=== PATIENT | female | born 1980 ===

== ENCOUNTER → 2023-05-22 11:13 | Outpatient (BNVA) | payer OTHER, SELFPAY | PROVIDERS: PCP Internal Medicine; Visit Provider Physician Assistant ==

== ENCOUNTER → 2023-05-22 11:13 | Outpatient (BNVA) | payer OTHER, SELFPAY | PROVIDERS: PCP Internal Medicine; Visit Provider Physician Assistant ==

== ENCOUNTER 2023-06-05 10:36 | Outpatient (AMB) | payer OTHER, SELFPAY ==
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
== END 2023-06-05 11:19 | disposition home or self-care (01) ==
PROVIDERS: PCP Internal Medicine; Referring Provider Physician Assistant; Visit Provider Physician Assistant
DX: M54.16 Radiculopathy, lumbar region (principal)
CPT/HCPCS: 99204

== ENCOUNTER → 2023-06-05 10:36 | Outpatient (BNVA) | payer OTHER, SELFPAY | PROVIDERS: PCP Internal Medicine; Visit Provider Physician Assistant | DX: M54.16 Radiculopathy, lumbar region (principal) | CPT/HCPCS: 99202 ==

== ENCOUNTER → 2023-11-28 11:23 | Outpatient (BNV) | payer OTHER, SELFPAY | PROVIDERS: PCP Internal Medicine; Visit Provider Internal Medicine Cardiovascular Disease | DX: Z01.810 Encounter for preprocedural cardiovascular examination (principal) | CPT/HCPCS: 93010 ==

== ENCOUNTER 2023-12-12 07:15 | Day surgery (SDC) | payer OTHER, SELFPAY ==
--- NOTE | 2023-11-28 | ECG_ITS ---
Test Reason : preop Blood Pressure : / mmHG Vent. Rate : 081 BPM Atrial Rate : 081 BPM P-R Int : 162 ms QRS Dur : 080 ms QT Int : 364 ms P-R-T Axes : 064 048 006 degrees QTc Int : 422 ms Normal sinus rhythm Low voltage QRS Borderline ECG No previous ECGs available Referred By: Sonam Valerio Electronically Signed By:NGA CARDONA MD
[2023-11-28 10:43] VITALS: BMI 33.2
[2023-11-28 10:54] VITALS: BP 140/96; PULSE 95; RESP 16; O2SAT 99
[2023-11-29 13:53] LABS: Hematocrit 42.8 % (37.0-47.0); Hemoglobin 15.1 g/dl (12.0-16.0); Mean Corpuscular HGB Conc 35.3 g/dl (31.0-35.0); Mean Corpuscular Hemoglobin 32.1 pg (27.0-33.0); Mean Corpuscular Volume 91.1 fL (80.0-98.0); Mean Platelet Volume 10.7 fL (9.4-12.3); Platelet Count 269 X10*3/uL (160-400); Red Cell Distribution Width 12.5 % (11.0-16.0); White Blood Count 6.7 X10*3/uL (4.8-10.8)
[2023-11-29 14:00] LABS: Estimated Average Glucose 203 mg/dL; Hemoglobin A1c % 8.7 % (<6.0)
[2023-11-29 15:09] LABS: Anion Gap 13 (12-20); Blood Urea Nitrogen 14 mg/dL (9-16); Calcium 9.2 mg/dL (8.4-10.2); Carbon Dioxide 19 mmol/L (22-29); Chloride 109 mmol/L (96-108); Creatinine Clr Calc Pharmacy 101.9; Estimated Glomerular Filt Rate > 60; Glucose Random 248 mg/dL (60-115); Potassium 4.8 mmol/L (3.3-5.1); Sodium 136 mmol/L (135-145)
[2023-12-12] VITALS (8 sets, daily range): BP systolic 118–161; BP diastolic 70–92; PULSE 77–97; RESP 18; TEMP 36.2–36.4; O2SAT 95–99; BMI 32.6
--- NOTE | ~2023-12-12 | FL_ITS ---
EXAMINATION: XR FLUOROSCOPY WITH IMAGES CLINICAL INFORMATION: L5-S1 microlumbar discectomy. COMPARISON: None available. TECHNIQUE: Fluoroscopy Supervised By: Dr. Escobar. Fluoroscopy Time: 0.0. Cumulative Dose: 2.53 mGy. DAP: 0.0439 Gycm2. Images: 1. FINDINGS: Intraoperative fluoroscopy and spot films were performed during a procedure in the OR. A probe is present at the L5-S1 disc space. Please correlate with Dr. Escobar's report for complete details. FL/FL guidance in OR IMPRESSION: Intraoperative fluoroscopy and spot films were obtained. Please see Dr. Escobar's report for complete details.
--- NOTE | 2023-12-12 07:09 | PC.NURSE ---
0710 call placed to pt due to has not arrived as scheduled at 0700, states 4 minutes away had an emergency this morning .
--- NOTE | 2023-12-12 07:23 | MHC.SHP ---
Pre-Procedural Eval Section A - 24 Hr Update-Section A only Date of Service: 12/12/23 The patient is an INPATIENT: No Changes since office visit: No Cold of Flu in the past 2 weeks, No New Medical Problems, No Changes in Medication and No Patient answered all questions The patient has been examined within 24 hours of the surgical procedure. The History & Physical has been completed within 30 days and I have reviewed it.: No Section B - Complete if H&P > 30 days Chief Complaint: Radiculopathy, lumbar region Allergies: Allergies Allergy/AdvReac Type Severity Reaction Status Date / Time latex Allergy Severe Rash, Verified 11/28/23 10:41 throat itching Seasonal Allergies Allergy Intermediate Runny Nose Verified 06/06/23 08:38 Review of Systems Sugical H&P ROS: Negative: Constitution, Cardiovascular, Respiratory, Neurological, Psychiatric, Hem-Onc, Allergic/Immunologic, Gastrointestinal, Genitourinary, Musculoskeletal, Integumentary, Endocrine and Eyes/Ears/Nose/Throat Exam Surgical H&P Exam: Normal: HEENT, Normal: Heart, Normal: Lungs, Normal: Extremities, Normal: Abdomen, Normal: Skin and Normal: Neurological (awake, alert,oriented x 3 ) Plan Diagnosis/Plan: Unchanged left L5-S1 microdiskectomy Time Spent With Patient Time: Total time managing care of this patient today _6___ minutes.
--- NOTE | 2023-12-12 07:55 | P.CONAN_ITS ---
Documented by User: Sonam Valerio NP 12/10/23 15:27 HPI - Anesthesia Eval Consult details Narrative: 43yo F for Left L5-S1 MicroLumbar discectomy, 12/12/23 Chronic post-covid cough. Occasional small clear phlegm. No other illness No CP/SOB. Occasional brief palps post-COVID IDDM: FBS ~ 110 PMFSH Active Problems Active Problems: All Active Problems Lumbar radiculopathy (Acute) Past Medical History Medical History (Updated 11/28/23 @ 11:00 by Shani Reed RN) Chronic cough Personal history of COVID-19 (~02/2023) Endometriosis Seasonal allergies Lung nodule Post-COVID chronic cough COVID-19 Diabetes Elevated cholesterol HTN (hypertension) Family History Family history of problems with anesthesia: No Surgical History Surgical History (Updated 11/28/23 @ 10:43 by Shani Reed RN) H/O tooth extraction Hx of section (2010) Hx of laparoscopy (~2009) History of Problems with Anesthesia: No Social History Social History Household Members Other:: 12 year old son Are you a primary physician locums urgent care to a significant other at home: Yes (son, sister to help post-op) Do you presently have visiting nurse or other home services: No Patient Tobacco Use Status: Current everyday Tobacco user Tobacco use type: Cigarette Cigarettes Per Day: 5 Years Smoked: 20 Smoked in Last 30 Days: Yes Second Hand Smoke Exposure: No Use of substances other than those prescribed or required for medical reasons: Yes Substance Use Frequency: Daily Have you been hit, kicked, punched, or otherwise hurt by someone within the past year? If so, by whom?: No Are you DNR?: No Advance Directives: No Advance Directives Information Provided: Yes Advance Directives on File: No Recently lost weight without trying: No Nutrition Risks: No Nutritional Risk Patient : No FDLMP: 11/05/2023 : No Poor oral hygiene: No Meds Allergies Allergy/AdvReac Type Severity Reaction Status Date / Time latex Allergy Severe Rash, Verified 12/12/23 07:27 throat itching Seasonal Allergies Allergy Intermediate Runny Nose Verified 12/12/23 07:27 Home Medications ?Medication ?Instructions ?Recorded ?Confirmed ?Last Taken ?Type amlodipine 10 mg tablet 10 mg PO DAILY 07/10/23 11/28/23 12/12/23 History atorvastatin 40 mg tablet 40 mg PO DAILY 07/10/23 11/28/23 Unknown History cetirizine 10 mg tablet 10 mg PO DAILY 07/10/23 11/28/23 Unknown History insulin glargine 100 unit/mL (3 13 unit subcut BID 07/10/23 11/28/23 12/11/23 History mL) subcutaneous pen (Lantus Solostar U-100 Insulin) insulin lispro 100 unit/mL 7 - 12 unit subcut TID 07/10/23 11/28/23 Unknown History subcutaneous pen losartan 50 mg tablet 50 mg PO DAILY 07/10/23 11/28/23 Unknown History acetaminophen 500 mg tablet 1,000 mg PO Q6H PRN Pain 11/28/23 11/28/23 Unknown History albuterol sulfate 90 mcg/actuation 2 puff inhalation Q4-6H PRN 11/28/23 11/28/23 Unknown History aerosol inhaler (Ventolin HFA) Shortness Of Breath Or Wheezing calcium 26-vit D3-magnesium 15 11/28/23 Unknown History ibuprofen 600 mg tablet 600 mg PO QID PRN Pain 11/28/23 11/28/23 Unknown History Exam Height,Weight and Vital Signs: Height 5 ft 7 in Weight 96.162 kg Last Vital Signs Pulse 95 11/28/23 10:54 Resp 16 11/28/23 10:54 BP 140/96 H 11/28/23 10:54 Pulse Ox 99 11/28/23 10:54 O2 Del Method Room Air 11/28/23 10:54 Pertinent Lab Results Pertinent Lab Results: Lab Results 11/29/23 Range/Units 13:19 WBC 6.7 (4.8-10.8) X10*3/uL RBC 4.70 (4.20-5.50) X10*6/uL Hgb 15.1 (12.0-16.0) g/dl Hct 42.8 (37.0-47.0) % MCV 91.1 (80.0-98.0) fL MCH 32.1 (27.0-33.0) pg MCHC 35.3 H (31.0-35.0) g/dl RDW 12.5 (11.0-16.0) % Plt Count 269 (160-400) X10*3/uL MPV 10.7 (9.4-12.3) fL Absolute Nucleated RBC 0.000 (0.0-0.012) X10*3/uL Nucleated RBC % (auto) 0.0 (0.0-0.2) /100WBC Sodium 136 (135-145) mmol/L Potassium 4.8 (3.3-5.1) mmol/L Chloride 109 H (96-108) mmol/L Carbon Dioxide 19 L (22-29) mmol/L Anion Gap 13 (12-20) BUN 14 (9-16) mg/dL Creatinine 0.83 (0.5-1.4) mg/dL Estim Creat Clear Calc 101.9 Estimated GFR > 60 Random Glucose 248 H (60-115) mg/dL Estimat Average Glucose 203 mg/dL Hemoglobin A1c % 8.7 H (<6.0) % Calcium 9.2 (8.4-10.2) mg/dL Narrative Narrative: EKG 11/2023 Vent. Rate : 081 BPM Atrial Rate : 081 BPM P-R Int : 162 ms QRS Dur : 080 ms QT Int : 364 ms P-R-T Axes : 064 048 006 degrees QTc Int : 422 ms Normal sinus rhythm Low voltage QRS Borderline ECG No previous ECGs available Airway Loose/Missing/Broken Teeth: Yes (pulled molars) Heart: RRR Lungs: CTAB Assessment and Plan Assessment Anesthesia Assessment: Anesthesia Plan Discussed and PAT Visit Final Anesthetic Review Family History of Problems with Anesthesia: No History of Problems with Anesthesia: No Documented by User: Laney Shaffer DO 12/12/23 07:59 [facility] Past Medical History Medical History (Updated 11/28/23 @ 11:00 by Shani Reed RN) Chronic cough Personal history of COVID-19 (~02/2023) Endometriosis Seasonal allergies Lung nodule Post-COVID chronic cough COVID-19 Diabetes Elevated cholesterol HTN (hypertension) Family History Family history of problems with anesthesia: No Surgical History Surgical History (Updated 11/28/23 @ 10:43 by Shani Reed RN) H/O tooth extraction Hx of section (2010) Hx of laparoscopy (~2009) History of Problems with Anesthesia: No Social History Social History Household Members Other:: 12 year old son Are you a primary physician locums urgent care to a significant other at home: Yes (son, sister to help post-op) Do you presently have visiting nurse or other home services: No Patient Tobacco Use Status: Current everyday Tobacco user Tobacco use type: Cigarette Cigarettes Per Day: 5 Years Smoked: 20 Smoked in Last 30 Days: Yes Second Hand Smoke Exposure: No Use of substances other than those prescribed or required for medical reasons: Yes Substance Use Frequency: Daily Have you been hit, kicked, punched, or otherwise hurt by someone within the past year? If so, by whom?: No Are you DNR?: No Advance Directives: No Advance Directives Information Provided: Yes Advance Directives on File: No Recently lost weight without trying: No Nutrition Risks: No Nutritional Risk Patient : No FDLMP: 11/05/2023 : No Poor oral hygiene: No Meds Allergies Allergy/AdvReac Type Severity Reaction Status Date / Time latex Allergy Severe Rash, Verified 12/12/23 07:27 throat itching Seasonal Allergies Allergy Intermediate Runny Nose Verified 12/12/23 07:27 Home Medications ?Medication ?Instructions ?Recorded ?Confirmed ?Last Taken ?Type amlodipine 10 mg tablet 10 mg PO DAILY 07/10/23 11/28/23 12/12/23 History atorvastatin 40 mg tablet 40 mg PO DAILY 07/10/23 11/28/23 Unknown History cetirizine 10 mg tablet 10 mg PO DAILY 07/10/23 11/28/23 Unknown History insulin glargine 100 unit/mL (3 13 unit subcut BID 07/10/23 11/28/23 12/11/23 History mL) subcutaneous pen (Lantus Solostar U-100 Insulin) insulin lispro 100 unit/mL 7 - 12 unit subcut TID 07/10/23 11/28/23 Unknown History subcutaneous pen losartan 50 mg tablet 50 mg PO DAILY 07/10/23 11/28/23 Unknown History acetaminophen 500 mg tablet 1,000 mg PO Q6H PRN Pain 11/28/23 11/28/23 Unknown History albuterol sulfate 90 mcg/actuation 2 puff inhalation Q4-6H PRN 11/28/23 11/28/23 Unknown History aerosol inhaler (Ventolin HFA) Shortness Of Breath Or Wheezing calcium 26-vit D3-magnesium 15 11/28/23 Unknown History ibuprofen 600 mg tablet 600 mg PO QID PRN Pain 11/28/23 11/28/23 Unknown History Exam Exam Date and Time: December 12, 2023 0752 Height,Weight and Vital Signs: Height 5 ft 7 in Weight 96.162 kg Last Vital Signs Pulse 95 11/28/23 10:54 Resp 16 11/28/23 10:54 BP 140/96 H 11/28/23 10:54 Pulse Ox 99 11/28/23 10:54 O2 Del Method Room Air 11/28/23 10:54 Height 5 ft 7 in Weight 94.347 kg Vital Signs Pulse Rate 95 11/28/23 10:54 Respiratory Rate 16 11/28/23 10:54 Blood Pressure 140/96 H 11/28/23 10:54 Pulse Oximetry 99 11/28/23 10:54 Oxygen Delivery Method Room Air 11/28/23 10:54 Temperature 97.5 F 12/12/23 07:35 Pulse Rate 97 12/12/23 07:35 Respiratory Rate 18 12/12/23 07:35 Blood Pressure 161/91 H 12/12/23 07:35 Pulse Oximetry 99 12/12/23 07:35 Oxygen Delivery Method Room Air 12/12/23 07:35 Airway Mallampati Class: II TM Dist: >3cm Neck ROM: Full Loose/Missing/Broken Teeth: Yes (missing molars) Heart: S1S2 Assessment and Plan Assessment Anesthesia Assessment: Anesthesia Plan Discussed and Chart Reviewed Final Anesthetic Review Family History of Problems with Anesthesia: No History of Problems with Anesthesia: No NPO: Yes ASA Class: II Final Preanesthetic Review: No Changes in Pt Med Stat, Meds/Allgs Chart Reviewed, Consent Obtained/Reviewed and Anes Risks/Benef Reviewed Patient Risk: Low Procedure Risk: Intermediate Anesthetic Plan Anesthetic Plan: GA and Agree w/ Assess. and Plan Disposition: Standard PACU
[2023-12-12] MEDS: Lactated Ringers 1,000 ML 100 ML IVCONT (07:58)
[2023-12-12 07:59] LABS: Glucose, Whole Blood 254 mg/dL (60-115)
[2023-12-12] MEDS: methocarbamoL 750 MG TABLET PO (08:04)
[2023-12-12] MEDS: Gabapentin 300 MG CAPSULE PO (08:04)
[2023-12-12 08:16] LABS: UPreg QC Valid YES; Urine Pregnancy NEGATIVE (NEGATIVE)
--- NOTE | 2023-12-12 09:42 | W.PM.OPN ---
Operative Note Operative Note Date of Service: 12/12/23 Narrative: Preoperative diagnosis: Left S1 radiculopathy due to disc herniation Postoperative diagnosis: Same Procedure: Left L5-S1 microdiskectomy with microscope Surgeon: Errol Escobar MD, PhD Obstetric Assistant: Cholo Forrester This patient is suffering from a left lumbar radiculopathy due to a L5-S1 disc herniation compressing the left S1 nerve root.. The patient was offered a lumbar microdiskectomy to decompress the nerve root. The procedure complications were explained. The patient was consented. The patient was brought to the operating room and endotracheally intubated. The patient was turned in a prone position on the Fortunato frame. Prepping and draping was done followed by time-out. A mid lumbar incision was made followed by release of the paravertebral muscles on the left side to expose the L5-S1 interspace. An intraoperative x-rays obtained to confirm the correct level. The microscope was brought in. A L5 laminotomy was done followed by opening of the flavum ligament. The S1 nerve root was identified and retracted medially to expose the L5-S1 disc space. I could palpate a small disc bulge but not the herniation that we were expecting. An annulotomy was done and disc material was removed from medial for the S1 nerve root. The disc space was inspected and any residual disc fragments were removed. This resulted in an excellent decompression of the S1 nerve root. Hemostasis was done. The microscope was removed. Marcaine was injected intramuscularly.The incision was closed in two layers. Steri-Strips used to approximate seizure. An op-site were taken there was used to cover the incision. All sponge and needle counts were correct. Patient was extubated and transported in stable condition to recovery room. this procedure was done with the aid of a physician assistant store manager sales who performed the initial exposure until the microscope was brought in and performed the closure of the incision. Anesthesia: General Blood loss: 10 mL Complications: None Specimen: None Surgical time: Disposition: Discharge home
--- NOTE | 2023-12-12 09:54 | PM.DS ---
DS: Providers Provider Date of Service: 12/12/23 Date of discharge: 12/12/23 Primary care physician: Lety Quinones MD Admitting clinician: Errol Escobar DS: Diagnosis Discharge Diagnosis (1) Lumbar radiculopathy: Status: Acute DS: Summary Time Attestation Discharge Coordination Time (in mins): 6 Quality: Safe Use of Opioids Does Pt have an Active Cancer Diagnosis on the Problem List?: No Quality: Stroke Does the patient have a stroke diagnosis?: No Physical Exam Vital Signs: Vital Signs: Last Vital Signs Temp 97.5 F 12/12/23 07:35 Pulse 97 12/12/23 07:35 Resp 18 12/12/23 07:35 BP 161/91 H 12/12/23 07:35 Pulse Ox 99 12/12/23 07:35 O2 Del Method Room Air 12/12/23 07:35 BMI result Body Mass Index 32.6 DS: Data Data Completed and Pending Labs on day of discharge: Laboratory Results - last 24 hr 12/12/23 12/12/23 07:48 Unknown POC Glucose 254 H Urine Test NEGATIVE Discharge Plan Discharge Patient Disposition: Home, Self-Care Referrals: Lety Quinones MD [Primary Care Provider] - 1 Week Discharge Medications: New docusate sodium [Colace] 100 mg capsule 100 mg PO BID Qty: 20 0RF oxycodone 5 mg tablet 5 mg PO Q4H PRN (Reason: pain) Qty: 20 0RF Rx Instructions: Partial Fill upon patient request. Continued losartan 50 mg tablet 50 mg PO DAILY atorvastatin 40 mg tablet 40 mg PO DAILY cetirizine 10 mg tablet 10 mg PO DAILY amlodipine 10 mg tablet 10 mg PO DAILY insulin lispro 100 unit/mL insulin pen 7 - 12 unit SUBCUT TID insulin glargine [Lantus Solostar U-100 Insulin] 100 unit/mL (3 mL) insulin pen 13 unit subcut BID Rx Instructions: took 8 units insulin last pm acetaminophen 500 mg Tablet 1,000 mg PO Q6H PRN (Reason: Pain) ibuprofen 600 mg Tablet 600 mg PO QID PRN (Reason: Pain) calcium 26-vit D3-magnesium 15 albuterol sulfate [Ventolin HFA] 90 mcg/actuation Hfa Aerosol Inhaler 2 puff INHALATION Q4-6H PRN (Reason: Shortness Of Breath Or Wheezing) Discharge Orders: Discharge Order (Routine); Ordered 12/12/23 Ordered By: Cholo Forrester Diet: Advance to usual diet Activity on Discharge: As tolerated Activity Restrictions/Additional Instructions: After your spinal surgery we ask you to observe the following restrictions/guidelines: Activity: It is normal to feel some discomfort as you increase your activity, but that will improve with time. We ask you avoid heavy lifting or acitivities that cause pain. As a general rule, 8lbs is a safe limit for lifting right after surgery. Walk as much as you feel comfortable but not to exhaustion. You will feel extra tired the first few days after surgery. Stay well hydrated. It is OK to walk up and down stairs You may return to driving when you are off narcotics (such as vicodin, oxycodone, dilaudid, etc), and you are back to normal functional capacity. If you have any concerns please check with office before driving. Return to work is specific to each patient and each surgery, so please speak with your doctor/PA at first follow up. Please bring paperwork such as FMLA at that time if you need it filled out. Medications: For optimum pain control, it is best to start with a combination of 500 mg of Tylenol every 4 hours with 600 mg of Motrin every 8 hours, and use narcotics as needed in between for breakthrough pain. We will give you a short supply of narcotics after surgery (usually one weeks worth). If you need more please call the office but do not use more than prescribed. You will need to give our office 48 hours notice if you need narcotics refilled and we do not fill narcotics on weekends or evenings. If you are on a narcotic, it is a good idea to take a stool softener such as colace or senna to avoid constipation If you take blood thinner such as aspirin, Plavix, Coumadin, Effient, Eliquis etc for conditions such as Afib, DVT, Pulmonary embolus, coronary disease, stents etc please speak with your surgeon about specific details as to when you can resume these medications. You can resume NSAIDs on post op day 1 (eg: Motrin, Naproxen, etc). Follow up: Please call the office, , after surgery to arrange a 3 week follow up for wound check. Wound Care: You may remove your dressing on the first day after surgery. ?You may ?leave open to air. Please do not remove the steri strips underneath. they will fall off on their own in one week. IT IS NORMAL FOR THE WOUND TO OOZE OR BE BLOODY FOR A FEW DAYS AFTER SURGERY. ?IF THIS HAPPENS JUST PLACE NEW DRESSING OVER IT TO AVOID STAINING CLOTHES. You may shower on post op day # 1 We ask that you do not let the water soak the wound. If it does get wet, just towel dry lightly. Please do not scrub your incision or place any type of chemical/ointment on the wound. No tub baths, pools or jacuzzis for one month. If you have any leaking or redness from your wound, or fevers, please call office Print Language: Citizen Of [place]
[2023-12-12] MEDS: fentaNYL citrate/PF 100 MCG/2 ML VIAL 50 MCG IVPUSH ×2 (10:27→10:35)
== END 2023-12-12 12:13 | disposition home or self-care (01) ==
PROVIDERS: Nurse Practitioner; PCP Internal Medicine; Visit Provider Neurological Surgery
PROC: (CPT 63030; principal; 2023-12-12 09:00)
DX: M54.16 Radiculopathy, lumbar region (principal); I10 Essential (primary) hypertension; E78.00 Pure hypercholesterolemia, unspecified; E11.9 Type 2 diabetes mellitus without complications; R05.3 Chronic cough; U09.9 Post COVID-19 condition, unspecified; R00.2 Palpitations; R91.1 Solitary pulmonary nodule; J30.2 Other seasonal allergic rhinitis; Z79.4 Long term (current) use of insulin; Z79.1 Long term (current) use of non-steroidal anti-inflammatories (NSAID); Z79.899 Other long term (current) drug therapy; Z91.040 Latex allergy status; F17.210 Nicotine dependence, cigarettes, uncomplicated; Z98.890 Other specified postprocedural states
CPT/HCPCS: 63030; 36415; 80048; 81025; 82947; 83036; 85027; 93005; J0131; J0690; J1100; J1885; J2250; J2405; J2704; J3010

== ENCOUNTER → 2023-12-12 07:15 | Outpatient (BNV) | payer OTHER, SELFPAY | PROVIDERS: PCP Internal Medicine; Visit Provider Neurological Surgery | DX: M54.16 Radiculopathy, lumbar region (principal) | CPT/HCPCS: 63030; 99499 ==

== ENCOUNTER 2024-01-03 14:48 | Outpatient (AMB) | payer OTHER, SELFPAY ==
--- NOTE | 2024-01-03 14:54 | HO.SPINEOV ---
Intake Visit Reasons: 1st post op Intake Note: Ms. Bran is here today for her 1st post op visit. Tubing Machine Tender Required: No Allergies latex Allergy (Severe, Verified 01/03/24 15:01) Rash, throat itching Seasonal Allergies Allergy (Intermediate, Verified 01/03/24 15:01) Runny Nose Assessment & Plan Assessment & Plan (1) Lumbar disc herniation: Code(s): M51.26 - Other intervertebral disc displacement, lumbar region Category: Medical Plan Mrs Bran is 3 weeks out from her left L5-S1 microdiskectomy. At the time of surgery we did find some fragments of disc but did not find a profoundly large disc herniation like her MRI suggested. She has had the pain in her left leg since 2019. The the pain has gotten better in the sense that it feels different but it is not gone away. It feels more like a sciatic pain which she describes in her buttock going down the back of her leg now. We talked about the fact that having leg pain for that long of a time she may have acquired some irritation of the nerve root or permanent injury to the nerve root from constant compression and that there is a small percentage of patients that do not get significant improvement even though the nerve is adequately decompressed at the time of surgery. We will give this another 6 weeks and see how it goes and can repeat the MRI if she does not see any significant improvement. Her wound is healed up nicely. We discussed activity guidelines. I did give her a prescription for gabapentin 300 t.i.d. to help with some of the nerve irritation. I told her to be careful if she discontinues it she would have to wean herself off it and that it can be sedating so do not take it if it is causing her to be drowsy if she needs to drive or be active etc.. Cholo Escobar MD, PhD [facility] Medications: New gabapentin 300 mg PO TID 90 caps 11RF Coding Level of Care Code Global (43286) Diagnoses Lumbar disc herniation M51.26
== END 2024-01-03 15:18 | disposition home or self-care (01) ==
PROVIDERS: PCP Internal Medicine; Visit Provider Physician Assistant
DX: M51.26 Other intervertebral disc displacement, lumbar region (principal)
CPT/HCPCS: 99024

== ENCOUNTER → 2024-01-03 14:48 | Outpatient (BNVA) | payer OTHER, SELFPAY | PROVIDERS: PCP Internal Medicine; Visit Provider Physician Assistant | DX: M51.26 Other intervertebral disc displacement, lumbar region (principal) | CPT/HCPCS: 99212 ==

== ENCOUNTER 2024-02-13 13:08 | Outpatient (AMB) | payer OTHER, SELFPAY ==
--- NOTE | 2024-02-13 13:11 | A.SPINEOV_ITS ---
Intake Visit Reasons: 2nd post op Intake Note: Ms. Bran is here today for her 2nd post-op. Careers Counsellor Required: No Allergies latex Allergy (Severe, Verified 01/03/24 15:01) Rash, throat itching Seasonal Allergies Allergy (Intermediate, Verified 01/03/24 15:01) Runny Nose Assessment & Plan Assessment & Plan (1) Lumbar disc herniation: Code(s): M51.26 - Other intervertebral disc displacement, lumbar region Category: Medical Plan Mrs bran is about 2 months out from her L5-S1 microdiskectomy. Please refer to my previous note for the specifics of the problem. She is continued to have postoperative pain. She had an MRI which was reviewed by Dr. Escobar and victorina dos santos, done at [facility] about a month after surgery and this did not show any evidence of recurrent disc herniation or anything we thought that would be able to explain her persistent symptoms. She looks to be in that small percentage of patients that does not improve after surgery despite adequate decompression. We discussed the possibility of spinal cord stimulator but she has not ready to consider it. I gave her a note to return to work. She will see us back on an as-needed basis. Cholo Escobar MD, PhD [facility] Coding Level of Care Code Global (63709) Diagnoses Lumbar disc herniation M51.26
== END 2024-02-13 14:54 | disposition home or self-care (01) ==
PROVIDERS: PCP Internal Medicine; Visit Provider Physician Assistant
DX: M51.26 Other intervertebral disc displacement, lumbar region (principal)
CPT/HCPCS: 99024

== ENCOUNTER → 2024-02-13 13:08 | Outpatient (BNVA) | payer OTHER, SELFPAY | PROVIDERS: PCP Internal Medicine; Visit Provider Physician Assistant | DX: M51.26 Other intervertebral disc displacement, lumbar region (principal) | CPT/HCPCS: 99212 ==